=== PATIENT | male | born 1960 | race Two or more races ===

== ENCOUNTER 2019-04-24 12:02 | Emergency (ER) | payer BC, OTHER ==
--- NOTE | 2019-04-24 12:11 | EDM.PDOC ---
ED HPI GENERAL MEDICAL PROBLEM - General Chief Complaint: General Stated Complaint: FALL AT WORK Time Seen by Provider: 04/24/19 12:02 Source of Information: Reports: Patient. Denies: Old Records (No [facility] records available) History Limitations: Reports: No Limitations - History of Present Illness INITIAL COMMENTS - FREE TEXT/NARRATIVE: Patient was brought to the emergency room via private automobile by a coworker for evaluation of a Workmen's Compensation injury, which occurred at about 17: 00 hours on 04/22/19. The patient slipped on the ice landing on the back of his head with 5/10 neck pain and intermittent possible blurred vision, dizziness, and posterior headache since that time. Patient did take 200 mg of ibuprofen yesterday evening but no other treatment to this point. The patient was able to return to work during the last couple of days with some difficulty with no repeat fall, injury, paresthesias, other neurological deficits, complaints, or injuries. The patient denies any chest pain/pressure, heart flutter, orthostasis , orthopnea, diaphoresis, paresthesias, recent decreased exercise tolerance, or any other anginal-type symptoms. No recent history of abdominal pain, heartburn , nausea, diarrhea, melena, gross hematochezia, or any food intolerance, including fatty foods, etc.. The patient also denies any recent fever, cough, wheezing, dyspnea, etc.. Onset: Sudden Onset Date: 04/22/19 Onset Time: 17:00 Duration: Intermittent Location: Reports: Head, Neck. Denies: Face, Chest, Abdomen, Back, Pelvis, Upper Extremity, Left, Upper Extremity, Right, Lower Extremity, Left, Lower Extremity, Right, Radiates to Quality: Reports: Ache Severity: Mild Improves with: Reports: None Worsens with: Reports: None Context: Reports: Trauma (As above). Denies: Sick Contact Associated Symptoms: Reports: Headaches. Denies: Confusion, Chest Pain, Cough, Diaphoresis, Fever/Chills, Loss of Appetite, Malaise, Nausea/Vomiting, Seizure, Shortness of Breath, Syncope, Weakness Treatments [employer]OR: Reports: NSAIDS Bilateral Upper Neck Pain Score (Numeric/FACES): 5 - Related Data Allergies Allergy/AdvReac Type Severity Reaction Status Date / Time No Known Allergies Allergy Verified 04/24/19 12:16 Home Meds: Home Meds Cyclobenzaprine [Flexeril] 10 mg PO TID PRN #30 tab 04/24/19 [Rx] Past Medical History HEENT History: Reports: Impaired Vision, Other (See Below). Denies: Allergic Rhinitis, Hard of Hearing, Retinal Detachment Other HEENT History: He wears reading glasses. Cardiovascular History: Reports: None, Other (See Below). Denies: Afib, Arrhythmia, CAD, Heart Murmur, High Cholesterol, Hypertension, IA, Syncope Other Cardiovascular History: He does not know his cholesterol status. Respiratory History: Denies: Asthma, Bronchitis, Recurrent, COPD, Intubation, Previous, PE, Pneumothorax, Sleep Apnea Gastrointestinal History: Reports: None. Denies: Cholelithiasis, Gastritis, GERD, GI Bleed, PUD Genitourinary History: Reports: None. Denies: Acute Renal Failure, Chronic Renal Insuffiency, Renal Calculus, STD, Urinary Incontinence, UTI, Recurrent Musculoskeletal History: Reports: Arthritis, Back Pain, Chronic, Neck Pain, Chronic, Osteoarthritis. Denies: Fracture, Gout, RA, SLE Neurological History: Reports: None. Denies: Cerebral Aneurysms, Concussion, CVA, Headaches, Chronic, Head Trauma, Migraines, MS, Parkinson's, Seizure, TIA, Vertigo Psychiatric History: Reports: None. Denies: Abuse, Victim of, ADD, ADHD, Addiction, Anxiety, Depression, Suicide Attempt, Suicidal Ideation Endocrine/Metabolic History: Reports: None. Denies: Diabetes, Type I, Diabetes , Type II, Hypothyroidism, IDDM Hematologic History: Reports: None. Denies: Anemia, Blood Transfusion(s), Iron Deficiency Immunologic History: Reports: None. Denies: AIDS, HIV, SLE Oncologic (Cancer) History: Reports: None. Denies: Basal Cell Carcinoma, Colon , Hodgkin's Lymphoma, Leukemia, Lymphoma, Malignant Melanoma, Non-Hodgkin's Lymphoma, Prostate, Squamous Cell Carcinoma Dermatologic History: Reports: None. Denies: Eczema, Psoriasis - Infectious Disease History Infectious Disease History: Reports: None, Chicken Pox. Denies: C-Difficile, Measles, Meningitis, Mononucleosis, MRSA, Mumps, Pertussis (Whooping Cough), Rheumatic Fever, Rubella, Scarlet Fever, Shingles, TB, VRE - Past Surgical History Head Surgeries/Procedures: Reports: None HEENT Surgical History: Reports: Oral Surgery, Other (See Below). Denies: Adenoidectomy, Eye Surgery, Laser Surgery, LASIK, Myringotomy w Tube(s), Naso- Sinus Surgery, Tonsillectomy Other HEENT Surgeries/Procedures: Multiple teeth extractions. Cardiovascular Surgical History: Reports: None. Denies: Varicose Respiratory Surgical History: Reports: None. Denies: Thoracentesis GI Surgical History: Denies: Appendectomy, Cholecystectomy, Colonoscopy, EGD, Hernia, Abdominal, Hernia, Inguinal, Hernia Repair/Other Male Surgical History: Reports: None. Denies: Circumcision, TURP- Transurethral Resection of Prostate, Vasectomy Endocrine Surgical History: Reports: None Neurological Surgical History: Denies: C-Spine, Discectomy, Intracranial, Laminectomy, Lumbar Spine, Sacral Spine, Spinal Fusion, Thoracic Spine, Vertebroplasty Musculoskeletal Surgical History: Reports: None. Denies: Carpal Tunnel, Ganglion Cyst, Joint Replacement, ORIF, Shoulder Surgery Oncologic Surgical History: Reports: None Dermatological Surgical History: Reports: None Social & Family History - Tobacco Use Smoking Status *Q: Never Smoker Tobacco Use Within Last Twelve Months: No Used Tobacco, but Quit: No Smoking Cessation Information Provided To Patient: No Second Hand Smoke Exposure: No Second Hand Smoke Education Provided: No - Caffeine Use Caffeine Use: Reports: Coffee (One cup per day), Soda (1 soda per day), Tea (1 cup per day). Denies: Energy Drinks - Alcohol Use Alcohol Use History: No Days Per Week of Alcohol Use: 0 Number of Drinks Per Day: 0 Number of Drinks Per Day Comment: No previous DWIs, problems with alcohol abuse , etc. 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 ED EXAM, GENERAL - Physical Exam Exam: See Below Exam Limited By: No Limitations General Appearance: Alert, WD/WN, No Apparent Distress Eye Exam: Bilateral Eye: EOMI, Normal Fundi, Normal Inspection (No nystagmus), Periorbital Changes (PERRLA), Other (Uncorrected vision 20/20 left eye and 20/ 25 right eye) Ears: Normal External Exam, Normal Canal, Hearing Grossly Normal, Normal TMs Nose: Normal Inspection, Normal Mucosa, No Blood Throat/Mouth: Normal Inspection, Normal Lips, Normal Teeth (Multiple missing teeth), Normal Gums, Normal Oropharynx, Normal Voice, No Airway Compromise. No : Dysphagia, Perioral Cyanosis Head: Atraumatic, Normocephalic, Other (No evidence of posterior ecchymosis, swelling, crepitation, deformity, etc.). No: Facial Swelling, Facial Tenderness , Sinus Tenderness Neck: Normal Inspection, Supple, Non-Tender, Full Range of Motion, Other (No significant posterior palpation pain or muscle spasms). No: Lymphadenopathy (L) , Lymphadenopathy (R) Respiratory/Chest: No Respiratory Distress, Lungs Clear, Normal Breath Sounds, No Accessory Muscle Use, Chest Non-Tender. No: Pleural Rub, Retractions Cardiovascular: Normal Peripheral Pulses, Regular Rate, Rhythm, No Edema, No Gallop, No JVD, No Murmur, No Rub. No: Gallop/S3, Gallop/S4, Friction Rub Peripheral Pulses: 2+: Radial (L), Radial (R), Dorsalis Pedis (L), Dorsalis Pedis (R) GI/Abdominal: Normal Bowel Sounds, Soft, Non-Tender, No Organomegaly, No Distention, No Abnormal Bruit, No Mass, Pelvis Stable. No: Guarding (Male) Exam: Deferred Rectal (Males) Exam: Deferred Back Exam: Normal Inspection, Full Range of Motion. No: CVA Tenderness (L), CVA Tenderness (R), Muscle Spasm Extremities: Normal Inspection, Normal Range of Motion, Non-Tender, No Pedal Edema, Normal Capillary Refill. No: Emeterio's Sign Neurological: Alert, Oriented, CN II-XII Intact, Normal Cognition, Normal Gait, Normal Reflexes (Negative Babinski's, finger to nose, and pronator rotation tests. No evidence of facial paresis, tongue deviation, orthostasis, etc.. Excellent reverse thought processes.), No Motor/Sensory Deficits Psychiatric: Normal Affect, Normal Mood Skin Exam: Warm, Dry, Intact, Normal Color, No Rash. No: Diaphoretic, Wound/ Incision Lymphatic: No Adenopathy Course - Vital Signs Last Recorded V/S: Last Vital Signs Temp 36.3 C 04/24/19 12:05 Pulse 77 04/24/19 12:05 Resp 16 04/24/19 12:05 BP 159/77 H 04/24/19 12:05 Pulse Ox 100 04/24/19 12:05 - Orders/Labs/Meds Orders: Active Orders 24 hr Category Date Time Status Cervical Spine Min 4V [CR] Stat Exams 04/24/19 12:13 Taken Head wo Cont [CT] Stat Exams 04/24/19 12:12 Taken Obtain Past Medical Record [OM.PC] Routine Oth 04/24/19 12:12 Active Labs: Laboratory Tests 04/24/19 04/24/19 Range/Units 12:20 12:20 WBC 7.4 (4.0-10.2) K/uL RBC 5.71 H (4.33-5.41) M/uL Hgb 15.8 (13.1-16.8) g/dL Hct 45.8 (39.0-49.0) % MCV 80.2 L (84.0-98.0) fL MCH 27.7 L (28.2-33.3) pg MCHC 34.5 (31.7-36.0) g/dL RDW 13.8 (11.2-14.1) % Plt Count 282 (150-350) K/uL Neut % (Auto) 67.9 (45.0-80.0) % Lymph % (Auto) 21.4 (10.0-50.0) % [place] % (Auto) 10.3 (2.0-14.0) % Eos % (Auto) 0.3 (0.0-5.0) % Baso % (Auto) 0.1 (0.0-2.0) % Neut # (Auto) 4.99 (1.40-7.00) K/uL Lymph # (Auto) 1.57 (0.50-3.50) K/uL [place] # (Auto) 0.76 (0.00-1.00) K/uL Eos # (Auto) 0.02 (0.00-0.50) K/uL Baso # (Auto) 0.01 (0.00-0.20) K/uL Sodium 138 (136-145) mmol/L Potassium 3.6 (3.5-5.1) mmol/L Chloride 103 (98-107) mmol/L Carbon Dioxide 27.3 (21.0-32.0) mmol/L BUN 15 (7-18) mg/dL Creatinine 0.92 (0.51-1.17) mg/dL Est Cr Clr Drug Dosing TNP Estimated GFR (MDRD) > 60 mL/min Glucose 95 (74-106) mg/dL Calcium 9.3 (8.5-10.1) mg/dL Total Bilirubin 0.7 (0.2-1.0) mg/dL AST 30 (15-37) U/L ALT 30 (12-78) U/L Alkaline Phosphatase 83 (46-116) IU/L Total Protein 8.6 H (6.4-8.2) g/dL Albumin 4.2 (3.4-5.0) g/dL - Radiology Interpretation Free Text/Narrative:: X-rays of the C-spine, complete including obliques, as evidence of a possible C4 -C5 posterior spinous fracture/irregularity with soft tissue calcification in the same area. Moderate osteoarthritic changes no evidence of other fractures. Telephone consultation 13:44 hours with the radiologist at [facility] confirming above findings, however true fracture is not suspected in light of clinical findings as above. Radiologists is comfortable about not performing a CT scan of the C-spine at this time. Telephone consultation at 12:50 hours with the radiology department at [facility] with preliminary verbal report of CT scan of the head without contrast, which was negative for acute changes. CT Results Date: 04/24/19 CT Results Time: 12:50 Departure - Departure Time of Disposition: 14:15 Disposition: Home, Self-Care 01 Clinical Impression: Dizziness, Head contusion, Neck pain, Osteoarthritis, Vertigo, Elevated blood pressure reading - Discharge Information *PRESCRIPTION DRUG MONITORING PROGRAM REVIEWED*: Not Applicable Prescriptions: Cyclobenzaprine [Flexeril] 10 mg PO TID PRN #30 tab PRN Reason: Spasms Instructions: Vertigo, [id number], Head Injury, Adult, [id number], Cervical Sprain, [id number] Referrals: PCP,None [Primary Care Provider] - Forms: ED Department Discharge, ED Return to Work/School Form Additional Instructions: 1. Follow up with your regular provider in 10-14 days as needed, if symptoms persist. Bring these discharge instructions with you to that visit.. 2. Tylenol 650 mg by mouth every 4 hours and/or OTC ibuprofen 2-3 tabs by mouth every 6 hours with food as directed./needed. You may stagger these medications for 48-72 hours only, which essentially means that you are receiving a pain medication about every 2 hours. 3. BenGay or equivalent, heating pad, and/or ice packs as directed. 4. Sedation and dry mouth percussion with Flexeril/muscle relaxant as discussed 5. Work excuse- See Form 6. Immediately after this visit verify that your cellular telephone's voicemail has been activated and is empty. Also verify that your home telephone 's answering machine is operating properly and has space to receive messages. Note that it is sometimes necessary for us to be able to contact you at a later date to discuss your medical care. 7. Please remember that we are ALWAYS here for you and want to answer any questions you may have. Feel free to call the hospital any time and we call you back CARINA. 8. Head precautions as directed-see form. Sepsis Event Note - Focused Exam Vital Signs: Vital Signs Temp Pulse Resp BP Pulse Ox 04/24/19 12:05 36.3 C 77 16 159/77 H 100 Date Exam was Performed: 04/24/19 Time Exam was Performed: 14:14 - Problem List & Annotations (1) Head contusion SNOMED Code(s): 377817417 Code(s): S00.93XA - CONTUSION OF UNSPECIFIED PART OF HEAD, INITIAL ENCOUNTER Status: Acute Priority: High Current Visit: Yes Onset Date: 04/22/19 Annotation/Comment:: Minor head contusion without evidence of a true concussion. Head precautions were given. Note normal CT scan of the head results as above. Symptomatic relief for now. Workmen's Compensation and work excuse forms were completed. Nonspecific occasional blurred vision, however not problematic during emergency room evaluation. Qualifiers: Encounter type: initial encounter Contusion of head detail: scalp Qualified Code(s): S00.03XA - Contusion of scalp, initial encounter (2) Neck pain SNOMED Code(s): 11657577 Code(s): M54.2 - CERVICALGIA Status: Acute Priority: High Current Visit : Yes Onset Date: 04/24/19 Annotation/Comment:: Moderate cervical osteoarthritic changes as above. Based on clinical exam, etc. a posterior spinal process fracture is unlikely and may be the patient's normal baseline/ variant. Radiology consultation as above with CT scan of the cervical spine not indicated at this time. Continue to observe closely by regular provider. Various therapeutic options were discussed with the patient, who is requesting Flexeril as a muscle relaxant. Sedation precautions given. Note no significant spasms or localized tenderness during today's exam, however. (3) Vertigo SNOMED Code(s): 812853140 Code(s): R42 - DIZZINESS AND GIDDINESS Status: Acute Priority: High Current Visit: Yes Onset Date: 04/22/19 Annotation/Comment:: Nonspecific dizziness and vertigo with head contusion as above. Serve for now. No gross neurological deficits. Flexeril may be beneficial as above. (4) Osteoarthritis SNOMED Code(s): 072611218 Code(s): M19.90 - UNSPECIFIED OSTEOARTHRITIS, UNSPECIFIED SITE Status: Chronic Priority: Medium Current Visit: Yes Annotation/Comment:: Otherwise stable by history Qualifiers: Osteoarthritis location: multiple joints Osteoarthritis type: primary Qualified Code(s): M15.0 - Primary generalized (osteo)arthritis (5) Elevated blood pressure reading SNOMED Code(s): 36005362 Code(s): R03.0 - ELEVATED BLOOD-PRESSURE READING, W/O DIAGNOSIS OF HTN Status: Acute Priority: Medium Current Visit: Yes Onset Date: 04/24/19 Annotation/Comment:: Mildly elevated blood pressure today with no previous history of hypertension. Observe for now. - Problem List Review Problem List Initiated/Reviewed/Updated: Yes - My Orders Last 24 Hours: My Active Orders 04/24/19 12:12 Head wo Cont [CT] Stat Obtain Past Medical Record [OM.PC] Routine 04/24/19 12:13 Cervical Spine Min 4V [CR] Stat - Assessment/Plan Last 24 Hours: My Active Orders 04/24/19 12:12 Head wo Cont [CT] Stat Obtain Past Medical Record [OM.PC] Routine 04/24/19 12:13 Cervical Spine Min 4V [CR] Stat Assessment:: As above Plan: As above. Extensive precautions were given to the patient, who is in agreement with the treatment plan. See Patient Instructions for further treatment and plan.
[2019-04-24 12:39] LABS: CHLORIDE,CL 103 mmol/L (98-107); SODIUM,NA 138 mmol/L (136-145)
== END 2019-04-24 14:23 | disposition home or self-care (01) ==
LOC: LL.ED 12:02
DX: S00.93XA Contusion of unspecified part of head, initial encounter (principal); R03.0 Elevated blood-pressure reading, without diagnosis of hypertension; M54.2 Cervicalgia; R42 Dizziness and giddiness; J44.9 Chronic obstructive pulmonary disease, unspecified; W00.0XXA Fall on same level due to ice and snow, initial encounter
CPT/HCPCS: 36415; 70450; 72050; 80053; 85025; 99284-25